=== PATIENT | female | born 2000 | race Caucasian/White ===

== ENCOUNTER 2018-12-03 19:15 | Inpatient (IN) | payer MEDICAID ==
[~2018-12-03 19:15] MED LIST: EPHEDrine SULFATE 50 MG/5 ML SYG; OXYTOCIN 30 UNITS/LR 500 ML BAG IV
[2018-12-03 20:32] LABS: ADD UMIC YES; UR ASCORBIC ACID NEGATIVE (NEGATIVE); UR BACTERIA FEW /HPF (NONE SEEN); UR BILIRUBIN (Dip) NEGATIVE (NEGATIVE); UR BLOOD (Dip) 2+ mg/dL (NEGATIVE); UR CLARITY SLIGHTLY CLOUDY (CLEAR); UR COLOR YELLOW (YELLOW); UR GLUCOSE (Dip) NEGATIVE (NEGATIVE); UR KETONES (Dip) NEGATIVE (NEGATIVE); UR LEUKOCYTE ESTERASE (Dip) TRACE Leu/ul (NEGATIVE); UR NITRITE (Dip) NEGATIVE (NEGATIVE); UR RBC 1 /HPF (0-5); UR SPECIFIC GRAVITY (Dip) 1.011 (1.003-1.030); UR SQUAMOUS EPITHELIAL CELL FEW /HPF (FEW); UR TOTAL PROTEIN (Dip) NEGATIVE (NEGATIVE); UR UROBILINOGEN (Dip) NEGATIVE (NEGATIVE); UR WBC 5 /HPF (0-5)
[2018-12-03] MEDS ORDERED: METHYLERGONOVINE 0.2 MG INJ IM (21:30)
[2018-12-03] MEDS ORDERED: MISOPROSTOL 200 MCG TAB PR (21:30)
[2018-12-03] MEDS ORDERED: CARBOPROST 250 MCG INJ IM (21:30)
[2018-12-03] MEDS ORDERED: OXYTOCIN 30 UNITS/LR 500 ML IV (21:30)
[2018-12-03] MEDS: LACTATED RINGER'S 1,000 ML IV ×2 (21:31→22:22)
[2018-12-03 21:38] LABS: ADD MAN DIFF? NO
[2018-12-03 21:40] LABS: BASOPHILS % 0.3 % (0.0-2.0); EOSINOPHILS # 0.1 10^3/ul (0.0-0.5); EOSINOPHILS % 0.9 % (0.0-7.0); HEMATOCRIT 39.3 % (37.0-47.0); HEMOGLOBIN 13.3 g/dl (12.0-16.0); MEAN CORPUSCULAR HEMOGLOBIN 31.7 pg (29.0-33.0); MEAN CORPUSCULAR HGB CONC 33.8 g/dl (32.0-37.0); MEAN CORPUSCULAR VOLUME 93.8 fl (72.0-104.0); MEAN PLATELET VOLUME 9.7 fl (7.4-10.4); MONOCYTE # 0.6 10^3/ul (0.3-0.9); MONOCYTES % 4.7 % (0.0-13.0); NEUTROPHIL # 9.7 10^3/ul (1.6-7.5); NEUTROPHILS % 71.7 % (30.0-74.0); PLATELET COUNT 312 10^3/UL (140-415); RED BLOOD COUNT 4.19 10^6/ul (4.20-5.40); RED CELL DISTRIBUTION WIDTH 12.9 % (11.5-14.5)
[2018-12-03 21:40] LABS: WHITE BLOOD COUNT 13.5 10^3/ul (4.8-10.8)
[2018-12-03 22:00] LABS: INR 0.88; PARTIAL THROMBOPLASTIN TIME 29.3 Sec (23.0-35.0); PT RATIO 0.9
[2018-12-03] MEDS: CITRIC ACID/NA CITRATE 30 ML CUP PO (22:22)
[2018-12-03] MEDS: ONDANSETRON 4 MG INJ IV (22:22)
[2018-12-03 22:36] LABS: HEPATITIS B SURFACE ANTIGEN NEGATIVE (NEGATIVE)
[2018-12-03] MEDS ORDERED: ONDANSETRON 4 MG INJ (23:14)
[2018-12-03] MEDS ORDERED: METOCLOPRAMIDE 10 MG INJ (23:14)
[2018-12-03] MEDS ORDERED: morphine SULFATE/PF (10 MG/10 ML) INJ (23:14)
[2018-12-03] MEDS ORDERED: PHENYLephrine (100 MCG/ML) 10ML SYG ×2 (23:14→23:15)
[2018-12-03] MEDS ORDERED: KETOROLAC 30 MG INJ (23:14)
[2018-12-03] MEDS ORDERED: OXYTOCIN 10 UNIT INJ (23:14)
[2018-12-03] MEDS ORDERED: DEXAMETHASONE 4 MG/ML 1 ML INJ (23:14)
[2018-12-03] MEDS: KETOROLAC 30 MG INJ IM (23:30)
[2018-12-04] MEDS ORDERED: EPHEDrine SULFATE 50 MG/5 ML SYG IV
[2018-12-04] MEDS ORDERED: HYDROmorphONE 1 MG/5 ML IV SYRINGE IV ×2
[2018-12-04] MEDS ORDERED: ONDANSETRON 4 MG INJ IV ×2
[2018-12-04] MEDS ORDERED: FENTAnyl 50 MCG/ML VIAL IV ×2
[2018-12-04] MEDS ORDERED: DIPHENHYDRAMINE 50 MG INJ IV ×2
[2018-12-04] MEDS ORDERED: NALBUPHINE HCL (10 MG/1 ML) INJ IV
[2018-12-04] MEDS ORDERED: OXYCODONE/ACETAMINOPHEN (5/325) TAB PO
[2018-12-04] MEDS ORDERED: HYDROmorphONE 0.5 MG/0.5 ML SYG IV ×2
[2018-12-04] MEDS ORDERED: NALOXONE (0.4 MG/ML) INJ IV
[2018-12-04] MEDS ORDERED: KETOROLAC 30 MG INJ IV
[2018-12-04] MEDS ORDERED: MEPERIDINE 25 MG INJ IV
[2018-12-04] MEDS ORDERED: morphine 2 MG INJ IV ×2
[2018-12-04] MEDS ORDERED: ACETAMINOPHEN 500 MG TAB PO
[2018-12-04] MEDS: AZITHROMYCIN 500MG/NS (PMX) 250 ML IVPB (01:05)
[2018-12-04] MEDS: OXYTOCIN 30 UNITS/LR 500 ML IV (01:10)
[2018-12-04] MEDS: CEFAZOLIN 2 GM/50 ML (PMX) 50 ML IVPB ×3 (02:29→13:43)
[2018-12-04] MEDS ORDERED: METHYLERGONOVINE 0.2 MG INJ IM (04:00)
[2018-12-04] MEDS ORDERED: LANOLIN HPA 1 PKT TOP (04:00)
[2018-12-04] MEDS ORDERED: MISOPROSTOL 200 MCG TAB PR (04:00)
[2018-12-04] MEDS ORDERED: HYDROCODONE/APAP (5/325) TAB PO ×2 (04:00)
[2018-12-04] MEDS ORDERED: OXYTOCIN 30 UNITS/LR 500 ML IV (04:00)
[2018-12-04] MEDS ORDERED: CARBOPROST 250 MCG INJ IM (04:00)
[2018-12-04] MEDS ORDERED: NA PHOSPHATE/BIPHOS 133 ML ENEMA PR (04:00)
[2018-12-04] MEDS: CLINDAMYCIN 300 MG CAP PO ×2 (06:20→13:43)
[2018-12-04] MEDS: LACTATED RINGER'S 1,000 ML IV (06:59)
[2018-12-04] MEDS: SENNA/DOCUSATE NA (8.6MG/50MG) TAB PO ×2 (09:40→21:24)
[2018-12-04 11:18] LABS: ADD MAN DIFF? NO
[2018-12-04 11:20] LABS: BASOPHILS % 0.2 % (0.0-2.0); HEMOGLOBIN 11.7 g/dl (12.0-16.0); LYMPHOCYTES # 1.3 10^3/ul (0.8-2.9); MEAN CORPUSCULAR HEMOGLOBIN 31.7 pg (29.0-33.0); MEAN CORPUSCULAR HGB CONC 33.4 g/dl (32.0-37.0); MEAN CORPUSCULAR VOLUME 94.9 fl (72.0-104.0); MONOCYTE # 0.4 10^3/ul (0.3-0.9); MONOCYTES % 2.1 % (0.0-13.0); NEUTROPHILS % 90.2 % (30.0-74.0); PLATELET COUNT 273 10^3/UL (140-415); RED BLOOD COUNT 3.69 10^6/ul (4.20-5.40)
[2018-12-04 11:20] LABS: WHITE BLOOD COUNT 18.9 10^3/ul (4.8-10.8)
[2018-12-04 15:13] LABS: RAPID PLASMA REAGIN NONREACTIVE (NR)
[2018-12-04] MEDS: BISACODYL 10 MG SUPP PR (15:24)
[2018-12-04] MEDS: CIPROFLOXACIN 400MG/D5W 200 ML IVPB (17:09)
[2018-12-04] MEDS: PIPER-TAZO 3.375 GM IV (PMX) 100 ML IVPB (18:33)
[2018-12-04] MEDS: OXYCODONE/ACETAMINOPHEN (5/325) TAB PO (21:39)
[2018-12-04] MEDS: IBUPROFEN 800 MG TAB PO (23:59)
[2018-12-05] MEDS: PIPER-TAZO 3.375 GM IV (PMX) 100 ML IVPB ×5 (00:46→23:47)
[2018-12-05] MEDS: CIPROFLOXACIN 400MG/D5W 200 ML IVPB ×2 (04:35→16:20)
[2018-12-05] MEDS: IBUPROFEN 800 MG TAB PO ×3 (05:46→23:40)
[2018-12-05 06:27] LABS: ADD MAN DIFF? NO
[2018-12-05 06:30] LABS: BASOPHIL # 0.1 10^3/ul (0.0-0.1); BASOPHILS % 0.3 % (0.0-2.0); EOSINOPHILS % 0.2 % (0.0-7.0); HEMOGLOBIN 10.5 g/dl (12.0-16.0); LYMPHOCYTES # 3.6 10^3/ul (0.8-2.9); MEAN CORPUSCULAR HEMOGLOBIN 32.1 pg (29.0-33.0); MEAN CORPUSCULAR HGB CONC 33.9 g/dl (32.0-37.0); MEAN CORPUSCULAR VOLUME 94.8 fl (72.0-104.0); MEAN PLATELET VOLUME 9.5 fl (7.4-10.4); MONOCYTE # 0.9 10^3/ul (0.3-0.9); MONOCYTES % 5.5 % (0.0-13.0); NEUTROPHIL # 11.7 10^3/ul (1.6-7.5); NEUTROPHILS % 71.6 % (30.0-74.0); PLATELET COUNT 238 10^3/UL (140-415); RED BLOOD COUNT 3.27 10^6/ul (4.20-5.40); RED CELL DISTRIBUTION WIDTH 12.9 % (11.5-14.5)
[2018-12-05 06:30] LABS: WHITE BLOOD COUNT 16.3 10^3/ul (4.8-10.8)
[2018-12-05] MEDS: SENNA/DOCUSATE NA (8.6MG/50MG) TAB PO ×2 (11:29→21:08)
[2018-12-05] MEDS: ACETAMINOPHEN 325 MG TAB PO ×2 (15:00→21:08)
[2018-12-06] MEDS: ACETAMINOPHEN 325 MG TAB PO ×3 (03:00→15:00)
[2018-12-06] MEDS: CIPROFLOXACIN 400MG/D5W 200 ML IVPB ×2 (04:35→09:00)
[2018-12-06] MEDS: IBUPROFEN 800 MG TAB PO ×2 (05:37→14:20)
[2018-12-06] MEDS: PIPER-TAZO 3.375 GM IV (PMX) 100 ML IVPB ×2 (06:37→11:44)
[2018-12-06 08:26] LABS: ADD MAN DIFF? NO
[2018-12-06 08:35] LABS: BASOPHILS % 0.3 % (0.0-2.0); EOSINOPHILS # 0.1 10^3/ul (0.0-0.5); EOSINOPHILS % 0.8 % (0.0-7.0); HEMATOCRIT 31.8 % (37.0-47.0); HEMOGLOBIN 10.3 g/dl (12.0-16.0); LYMPHOCYTES # 2.5 10^3/ul (0.8-2.9); LYMPHOCYTES % 19.2 % (18.0-55.0); MEAN CORPUSCULAR HEMOGLOBIN 31.2 pg (29.0-33.0); MEAN CORPUSCULAR HGB CONC 32.4 g/dl (32.0-37.0); MEAN CORPUSCULAR VOLUME 96.4 fl (72.0-104.0); MEAN PLATELET VOLUME 10.1 fl (7.4-10.4); MONOCYTE # 0.7 10^3/ul (0.3-0.9); MONOCYTES % 5.4 % (0.0-13.0); NEUTROPHIL # 9.6 10^3/ul (1.6-7.5); NEUTROPHILS % 73.7 % (30.0-74.0); PLATELET COUNT 275 10^3/UL (140-415); RED CELL DISTRIBUTION WIDTH 13.2 % (11.5-14.5)
[2018-12-06 08:35] LABS: WHITE BLOOD COUNT 13.1 10^3/ul (4.8-10.8)
[2018-12-06] MEDS: SENNA/DOCUSATE NA (8.6MG/50MG) TAB PO (10:29)
[2018-12-07] MEDS ORDERED: DIPHTH/TET/ACEL PERTUSS (ADULT) 0.5 ML VIAL IM* (09:00)
[2018-12-07] MEDS ORDERED: MEASLES,MUMPS,RUBELLA VACCINE INJ SC* (09:00)
== END 2018-12-06 15:38 | disposition home or self-care (01) | DRG 788 ==
LOC: OBT 19:15 → L-D 19:17 → PP1 12-04 02:56 → OBT 21:20 → L-D 21:20
PROC: 3E033VJ Introduction of Other Hormone into Peripheral Vein, Percutaneous Approach (ICD-10-PCS; 2018-12-03 23:00)
DX: O64.8XX0 Obstructed labor due to other malposition and malpresentation, not applicable or unspecified (principal); O42.92 Full-term premature rupture of membranes, unspecified as to length of time between rupture and onset of labor; Z3A.38 38 weeks gestation of pregnancy; Z37.0 Single live birth
CPT/HCPCS: 36415; 76815; 76818; 81001; 85025; 85610; 85730; 86592; 86850; 86900; 86901; 87086; 87340; 96360; 96361